=== PATIENT | female | born 1965 | race Caucasian/White ===

== ENCOUNTER → 2017-03-29 | Outpatient (CLI) | payer OTHER | LOC: RAD 12:24 | DX: J44.9 Chronic obstructive pulmonary disease, unspecified (principal) | CPT/HCPCS: 71020 ==

== ENCOUNTER → 2021-02-11 | Outpatient (CLI) | payer MEDICARE, OTHER ==
[~2021-02-11] MED LIST: ASPIRIN EC81 MG PO; CLARITIN10 M2 PO; DIFLUCAN150 MG PO; FLEXERIL 10 MG10 MG PO; IBUPROFEN800 MG PO; LASIX20 MG PO; POTASSIUM CHLO10 MEQ PO; PROTONIX 40 MG40 M1 PO; ROPINIROLE HCL1 MG PO; SYMBICORT 160-1 INHA INH; SYMBICORT 16010.2 GM INH; SYNTHROID25 MCG PO; TOPROL XL25 MG PO; VENTOLIN HFA 66.7 GM INH; VITAMIN D21250 MCG PO; ZOCOR10 MG PO
== END ==
LOC: CT 09:51
DX: R31.9 Hematuria, unspecified (principal); R32 Unspecified urinary incontinence
CPT/HCPCS: Q9963; Q9967

== ENCOUNTER → 2021-04-17 | Day surgery (SDC) | payer MEDICARE, OTHER | END | disposition home or self-care (01) | LOC: OR 08:04 | DX: R31.29 Other microscopic hematuria (principal); I10 Essential (primary) hypertension; J44.9 Chronic obstructive pulmonary disease, unspecified; F41.9 Anxiety disorder, unspecified; K21.9 Gastro-esophageal reflux disease without esophagitis; F17.210 Nicotine dependence, cigarettes, uncomplicated; Z85.3 Personal history of malignant neoplasm of breast; Z79.82 Long term (current) use of aspirin; Z79.899 Other long term (current) drug therapy | CPT/HCPCS: C1769; C1894; C2617; J7120 ==

== ENCOUNTER → 2021-04-29 | Outpatient (CLI) | payer MEDICARE, OTHER | LOC: KOH-I 04-09 09:07 | DX: F17.210 Nicotine dependence, cigarettes, uncomplicated (principal); R91.8 Other nonspecific abnormal finding of lung field | CPT/HCPCS: 71271 ==

== ENCOUNTER 2021-06-12 10:25 | Emergency (ER) | payer MEDICARE, OTHER ==
[~2021-06-12 10:25] MED LIST changes: -PROTONIX 40 MG40 M1 PO; -ROPINIROLE HCL1 MG PO; -TOPROL XL25 MG PO; -VITAMIN D21250 MCG PO
[2021-06-12 11:21] LABS: HEMOGLOBIN 13.6 gm/dl (12.3-15.3); RED BLOOD COUNT 4.17 M/UL (4.00-5.10); WHITE BLOOD COUNT 7.3 K/UL (4.5-11.0)
[2021-06-12 12:05] LABS: BUN/CREATININE RATIO 14 (0-10)
[2021-06-12] MEDS ORDERED: DIFLUCAN100 MG PO (12:59)
[2021-06-12] MEDS ORDERED: ZOFRAN ODT 4 MG4 MG SL (13:02)
[2021-06-12] MEDS ORDERED: PRILOSEC OTC20 MG PO (13:02)
[2021-06-12] MEDS ORDERED: BENTYL 10MG CAP10 MG PO (13:02)
[2021-07-04] MEDS ORDERED: LOPRESSOR 25 MG25 MG PO (08:33)
[2021-07-04] MEDS ORDERED: ROPINIROLE HCL1 MG PO (08:34)
== END 2021-06-12 13:24 | disposition home or self-care (01) ==
LOC: ER1 10:25
PROVIDERS: Physician Assistant
DX: A04.8 Other specified bacterial intestinal infections (principal); B37.3 Candidiasis of vulva and vagina; J44.9 Chronic obstructive pulmonary disease, unspecified; F17.200 Nicotine dependence, unspecified, uncomplicated; Z79.899 Other long term (current) drug therapy
CPT/HCPCS: 80053; 81001; 83690; 85025; 99283

== ENCOUNTER 2021-07-04 11:09 | Observation (INO) | payer MEDICARE, OTHER ==
[~2021-07-04] VITALS: Ht 170.2 cm; Wt 117.9 kg
[~2021-07-04 11:09] MED LIST changes: +BENTYL 10MG CAP10 MG PO; +DIFLUCAN100 MG PO; +LOPRESSOR 25 MG25 MG PO; +PRILOSEC OTC20 MG PO; +ROPINIROLE HCL1 MG PO; +ZOFRAN ODT 4 MG4 MG SL
[2021-07-04 12:17] LABS: HEMOGLOBIN 13.8 gm/dl (12.3-15.3); RED BLOOD COUNT 4.22 M/UL (4.00-5.10); WHITE BLOOD COUNT 7.3 K/UL (4.5-11.0)
[2021-07-04 12:50] LABS: BUN/CREATININE RATIO 11 (0-10)
[2021-07-04] MEDS ORDERED: PROTONIX 40 MG40 M1 PO (17:41)
[2021-07-04] MEDS ORDERED: CYMBALTA30 MG PO (17:42)
[2021-07-04] MEDS ORDERED: MYCOSTATIN OINT15 GM TOP (17:46)
[2021-07-04] MEDS ORDERED: VITAMIN D325 MCG PO (20:27)
[2021-07-05 01:47] LABS: HEMOGLOBIN 12.5 gm/dl (12.3-15.3); RED BLOOD COUNT 3.88 M/UL (4.00-5.10); WHITE BLOOD COUNT 5.2 K/UL (4.5-11.0)
[2021-07-05 02:15] LABS: BUN/CREATININE RATIO 13 (0-10)
== END 2021-07-05 12:30 | disposition home or self-care (01) ==
LOC: ER1 11:09 → CDU 15:33 → M/S 18:20
PROVIDERS: Physician Assistant; Physician Assistant Medical; ADMIT Internal Medicine
DX: M25.512 Pain in left shoulder (principal); F41.9 Anxiety disorder, unspecified; E03.9 Hypothyroidism, unspecified; E66.01 Morbid (severe) obesity due to excess calories; F17.210 Nicotine dependence, cigarettes, uncomplicated; I10 Essential (primary) hypertension; Z85.3 Personal history of malignant neoplasm of breast; Z86.711 Personal history of pulmonary embolism; Z86.79 Personal history of other diseases of the circulatory system; Z68.41 Body mass index [BMI] 40.0-44.9, adult; Z79.82 Long term (current) use of aspirin; Z79.899 Other long term (current) drug therapy; Z20.822 Contact with and (suspected) exposure to COVID-19
CPT/HCPCS: 36415; 71045; 80048; 80053; 82550; 82553; 83735; 83874; 84484; 85025; 85027; 93005; 99285; G0378; U0002

== ENCOUNTER → 2021-08-06 | Outpatient (CLI) | payer MEDICARE, OTHER ==
[~2021-08-06] MED LIST changes: +CYMBALTA30 MG PO; +MYCOSTATIN OINT15 GM TOP; +PROTONIX 40 MG40 M1 PO; +VITAMIN D325 MCG PO
== END ==
LOC: KOH-I 10:50
DX: M54.5 Low back pain (principal); R06.02 Shortness of breath; M51.37 Other intervertebral disc degeneration, lumbosacral region; M47.817 Spondylosis without myelopathy or radiculopathy, lumbosacral region; M47.816 Spondylosis without myelopathy or radiculopathy, lumbar region; M51.36 Other intervertebral disc degeneration, lumbar region
CPT/HCPCS: 71046; 72100

== ENCOUNTER → 2021-09-29 | Outpatient (CLI) | payer MEDICARE, OTHER | LOC: EMI 08:00 | DX: M54.50 Low back pain, unspecified (principal); R93.7 Abnormal findings on diagnostic imaging of other parts of musculoskeletal system | CPT/HCPCS: 72148 ==

== ENCOUNTER → 2022-05-15 | Outpatient (CLI) | payer MEDICARE, OTHER | LOC: KOH-I 13:46 | DX: F17.210 Nicotine dependence, cigarettes, uncomplicated (principal) | CPT/HCPCS: 71271 ==

== ENCOUNTER → 2022-06-26 | Outpatient (CLI) | payer MEDICARE, OTHER ==
[2022-06-26 06:51] LABS: HEMOGLOBIN 14.1 gm/dl (12.3-15.3); RED BLOOD COUNT 4.29 M/UL (4.00-5.10); WHITE BLOOD COUNT 8.8 K/UL (4.5-11.0)
[2022-06-26 07:15] LABS: BUN/CREATININE RATIO 21 (0-10)
== END ==
LOC: LAB 06:12
PROVIDERS: Internal Medicine Cardiovascular Disease
DX: E78.00 Pure hypercholesterolemia, unspecified (principal); R03.0 Elevated blood-pressure reading, without diagnosis of hypertension
CPT/HCPCS: 36415; 80053; 80061; 83735; 85025